=== PATIENT | male | born 1975 | race African-American/Black ===

== ENCOUNTER 2023-01-05 20:28 | Emergency (ER) | payer BC, OTHER ==
[2023-01-05 21:16] LABS: Absolute Lymphocytes (CBC) 4.2 K/uL (0.7-4.9); Hematocrit 40.6 % (39.6-49.0); Lymphocytes % 40.2 % (15.3-44.8); MCV 96.2 fL (80-100); MPV 9.5 fL (7.6-11.3); RBC Red Blood Cell Count 4.22 M/uL (4.33-5.43)
[2023-01-05] MEDS ORDERED: METOCLOPRAMIDE 10 MG/2mL INJ ONE (21:18)
[2023-01-05] MEDS ORDERED: DIAZEPAM 10 MG/2 ML INJ SYRINGE ONE (21:19)
[2023-01-05] MEDS ORDERED: NA CHLORIDE 0.9% 100 ML ONE (21:19)
[2023-01-05] MEDS ORDERED: DICYCLOMINE HCL 20 MG/2 ML AMP IM ONE (21:19)
[2023-01-05] MEDS ORDERED: NA CHLORIDE 0.9% 1,000 ML ONE (21:20)
[2023-01-05] MEDS ORDERED: GLUCAGON 1 MG/VIAL ONE (21:20)
[2023-01-05 21:30] LABS: Albumin 3.7 g/dL (3.4-5.0); Bilirubin Direct 0.2 mg/dL (0-0.2); Bilirubin Indirect, Calculated 0.5 mg/dL (0.2-0.8); Bilirubin Total 0.7 mg/dL (0.2-1.0); Potassium 3.5 mEq/L (3.5-5.1)
--- NOTE | 2023-01-05 22:45 | RAD REPORT ---
EXAM DESCRIPTION: CT - Thorax Wo Con CLINICAL HISTORY: Chest pain esophageal foreign body COMPARISON: CTANGIO CHEST FOR PE dated 02/02/2009 FINDINGS: The lungs are clear. No pleural thickening or pleural effusion. No pneumothorax. No axillary, mediastinal or hilar adenopathy. No radiopaque foreign body seen. No concerning bony finding. No gross upper abdominal finding. All CT scans are performed using dose optimization technique as appropriate and may include automated exposure control or mA/KV adjustment according to patient size. IMPRESSION: Negative study.
--- NOTE | 2023-01-05 23:16 | ER ---
Nurse's Notes [facility] Name: Franco Meenndez Age: 48 yrs Sex: Male : 1975 Arrival Date: 01/05/2023 Time: 20:28 Bed 5 Private MD: Diagnosis: Esophageal obstruction, esophageal food bolus impaction Presentation: 01/05 20:51 Chief complaint: Patient states: 'I ate a piece of meat earlier and it's stuck in my as6 throat. It's been there for hours". Coronavirus screen: At this time, the client does not indicate any symptoms associated with coronavirus-19. Ebola Screen: No symptoms or risks identified at this time. Initial Sepsis Screen: Does the patient meet any 2 criteria? No. Patient's initial sepsis screen is negative. Does the patient have a suspected source of infection? No. Patient's initial sepsis screen is negative. Risk Assessment: Do you want to hurt yourself or someone else? Patient reports no desire to harm self or others. Onset of symptoms was January 05, 2023. 20:51 Method Of Arrival: Ambulatory as6 20:51 Acuity: MAURICIO 3 as6 Historical: - Allergies: 20:54 No Known Allergies; as6 - PMHx: 20:54 Hypertensive disorder; as6 - PSHx: 20:54 Tonsillectomy; as6 - Immunization history:: Client reports receiving the 2nd dose of the Covid vaccine, pfizer. - Social history:: Smoking status: Patient reports the use of cigarette tobacco products, denies chronic smoking, but will smoke occasionally. - Family history:: not pertinent. Screenin:37 [facility] ED Fall Risk Assessment (Adult) History of falling in the last 3 months, kd3 including since admission No falls in past 3 months (0 pts) Confusion or Disorientation No (0 pts) Intoxicated or Sedated No (0 pts) Impaired Gait No (0 pts) Mobility Assist Device Used No (0 pt) Altered Elimination No (0 pt) Score/Fall Risk Level 0 - 2 = Low Risk Maintained a safe environment. Abuse screen: Denies threats or abuse. Denies injuries from another. Nutritional screening: No deficits noted. Tuberculosis screening: No symptoms or risk factors identified. Assessment: 21:36 General: Appears uncomfortable, Behavior is calm, cooperative. Pain: Complains of pain kd3 in neck. Neuro: Level of Consciousness is awake, alert, obeys commands, Oriented to person, place, time, situation. Cardiovascular: Patient's skin is warm and dry. Respiratory: Airway is patent Trachea midline Respiratory effort is even, unlabored, Respiratory pattern is regular, symmetrical. Vital Signs: 20:51 BP 166 / 110; Pulse 65; Resp 18 S; Temp 98.1(O); Pulse Ox 98% on R/A; Weight 108.86 kg as6 (R); Height 5 ft. 9 in. (R); Pain 0/10; 21:36 BP 155 / 91; Pulse 52; Resp 19; Pulse Ox 98% on R/A; kd3 22:40 BP 145 / 99; Pulse 52; Resp 15; Pulse Ox 100% on R/A; kd3 01/06 00:17 BP 136 / 100; Pulse 54; Resp 19; Pulse Ox 100% on R/A; kd3 01/05 20:51 Body Mass Index 35.44 (108.86 kg, 175.26 cm) as6 01/05 20:51 Pain Scale: Adult as6 ED Course: 01/05 20:31 Patient arrived in ED. ja2 20:40 Buddy Hernández PA is PHCP. cp 20:40 Austen Gutierrez MD is Attending Physician. cp 20:53 Austen Gutierrez MD is Attending Physician. sp4 20:54 Triage completed. as6 20:57 Arm band placed on. as6 21:06 Inserted saline lock: 20 gauge in right antecubital area, using aseptic technique. as6 Blood collected. 21:36 Roxy Hinton, RN is Primary Nurse. kd3 21:37 Patient has correct armband on for positive identification. kd3 22:31 CT Chest Wo Con In Process Unspecified. EDMS 23:07 Initiated transfer to [facility], spoke with Saurav. wm 01/06 00:18 Pt accepted for transfer by Dr. Larkin \\T\\ 0012 per Saurav Haq. wm Administered Medications: 01/05 21:24 Drug: metoCLOPramide IVP 10 mg Route: IVP; Site: right antecubital; kd3 01/06 00:18 Follow up: Response: No adverse reaction kd3 01/05 21:24 Drug: Glucagon IVP 1 mg Route: IVP; Site: right antecubital; kd3 01/06 00:18 Follow up: Response: No adverse reaction kd3 01/05 21:24 Drug: Dicyclomine IM 20 mg Route: IM; Site: left deltoid; kd3 01/06 00:17 Follow up: Response: No adverse reaction kd3 01/05 21:24 Drug: Diazepam IVP 5 mg Route: IVP; Site: right antecubital; kd3 01/06 00:17 Follow up: Response: No adverse reaction kd3 01/05 21:25 Drug: NS 0.9% IV 1000 ml Route: IV; Rate: 125 ml/hr; Site: right antecubital; kd3 01/06 00:52 Drug: Diazepam IVP 5 mg Route: IVP; Site: right antecubital; kd3 Medication: 01/05 21:37 VIS not applicable for this client. kd3 Outcome: 23:16 ER care complete, transfer ordered by spLiliam 01/06 01:32 Patient left the ED. sb4 Signatures: Dispatcher [employer] EDMS Buddy Hernández PA PA cp Marsh, Wendy wm Alexander, Jessica ja2 Slawson, Ashby, RN RN as6 Roxy Hinton RN RN kd3 Alison Zavaleta PA-C PA-C sb4 Austen Gutierrez MD MD sp4
--- NOTE | 2023-01-05 23:16 | EDPHYS ---
Physician Documentation [facility] Name: Franco Menendez Age: 48 yrs Sex: Male : 1975 Arrival Date: 01/05/2023 Time: 20:28 Bed 5 Private MD: ED Physician Austen Gutierrez HPI: 01/05 20:53 This 48 yrs old Black Male presents to ER via Unassigned with complaints of Foreign sp4 Body In Throat. 23:08 48-year-old male with a history of prior dysphagia and esophageal foreign body about 8 sp4 years ago, presents with acute dysphagia and sensation of food stuck in his esophagus starting at 2 PM today. Patient states he had a ox tail, that became lodged in his esophagus. Patient states that he is not able to tolerate p.o. water as it comes right back up. . Historical: - Allergies: 20:54 No Known Allergies; as6 - PMHx: 20:54 Hypertensive disorder; as6 - PSHx: 20:54 Tonsillectomy; as6 - Immunization history:: Client reports receiving the 2nd dose of the Covid vaccine, pfizer. - Social history:: Smoking status: Patient reports the use of cigarette tobacco products, denies chronic smoking, but will smoke occasionally. - Family history:: not pertinent. ROS: 23:08 Constitutional: Negative for fever, chills, and weight loss, Eyes: Negative for injury, sp4 pain, redness, and discharge, ENT: Negative for injury, pain, and discharge, positive for acute dysphagia Neck: Negative for injury, pain, and swelling, Cardiovascular: Negative for chest pain, palpitations, and edema, Respiratory: Negative for shortness of breath, cough, wheezing, and pleuritic chest pain, Abdomen/GI: Negative for abdominal pain, diarrhea, and constipation, positive for nausea, vomiting, acute dysphagia Back: Negative for injury and pain, : Negative for injury, bleeding, discharge, and swelling, MS/Extremity: Negative for injury and deformity, Skin: Negative for injury, rash, and discoloration, Neuro: Negative for headache, weakness, numbness, tingling, and seizure, Psych: Negative for depression, anxiety, Allergy/Immunology: Negative for hives, rash, and allergies Endocrine: Negative for neck swelling, polydipsia, polyuria, polyphagia, and weight changes Hematologic/Lymphatic: Negative for swollen nodes, abnormal bleeding, and unusual bruising Exam: 23:08 Constitutional: This is a well developed, well nourished patient who is awake, alert, sp4 and in no acute distress. Head/Face: Normocephalic, atraumatic. Eyes: Pupils equal round and reactive to light, extra-ocular motions intact. Lids and lashes normal. Conjunctiva and sclera are not injected. Cornea within normal limits. Periorbital areas with no swelling, redness, or edema. ENT: Nares patent. No nasal discharge, no septal abnormalities noted. Tympanic membranes are normal and external auditory canals are clear. Oropharynx with no redness, swelling, or masses, exudates, or evidence of obstruction, uvula midline. Mucous membranes moist. Neck: Trachea midline, no thyromegaly or masses palpated, and no cervical lymphadenopathy. Supple, full range of motion without nuchal rigidity, or vertebral point tenderness. Chest/axilla: Normal chest wall appearance and motion. Nontender with no deformity. No lesions are appreciated. Cardiovascular: Regular rate and rhythm with a normal S1 and S2. No gallops, murmurs, or rubs. Normal PMI, no JVD. No pulse deficits. Respiratory: Lungs have equal breath sounds bilaterally, clear to auscultation and percussion. No rales, rhonchi or wheezes noted. No increased work of breathing, no retractions or nasal flaring. Abdomen/GI: Soft, non-tender, with normal bowel sounds. No distension or tympany. No guarding or rebound. No evidence of tenderness throughout. Back: No spinal tenderness. No costovertebral tenderness. Male : Normal genitalia with no discharge or lesions. Skin: Warm, dry with normal turgor. Normal color with no rashes, no lesions, and no evidence of cellulitis. MS/ Extremity: Pulses equal, no cyanosis. Neurovascular intact. Full, normal range of motion. Neuro: Awake and alert, GCS 15, oriented to person, place, time, and situation. Cranial nerves II-XII grossly intact. Motor strength 5/5 in all extremities. Sensory grossly intact. Psych: Awake, alert, with orientation to person, place and time. Behavior, mood, and affect are within normal limits 23:08 ECG was reviewed by the Attending Physician. Sinus bradycardia at the rate of 58, no ST sp4 elevation or depression, otherwise normal EKG. EKG time 2130 Vital Signs: 20:51 BP 166 / 110; Pulse 65; Resp 18 S; Temp 98.1(O); Pulse Ox 98% on R/A; Weight 108.86 kg as6 (R); Height 5 ft. 9 in. (R); Pain 0/10; 21:36 BP 155 / 91; Pulse 52; Resp 19; Pulse Ox 98% on R/A; kd3 22:40 BP 145 / 99; Pulse 52; Resp 15; Pulse Ox 100% on R/A; kd3 01/06 00:17 BP 136 / 100; Pulse 54; Resp 19; Pulse Ox 100% on R/A; kd3 01/05 20:51 Body Mass Index 35.44 (108.86 kg, 175.26 cm) as6 01/05 20:51 Pain Scale: Adult as6 MDM: 01/05 20:59 Patient medically screened. sp4 23:14 Differential Diagnosis Esophageal food impaction, esophageal mass, esophageal ulcer, sp4 acute dysphagia. Data reviewed: vital signs, nurses notes, old medical records, lab test result(s), EKG, radiologic studies, CT scan. Consideration of Admission/Observation Patient was admitted/placed on observation. Escalation of care including admission/observation considered. Management of patient was discussed with the following: Side Show Entertainer: Gastroenterology. ED course: CT was discussed with the radiologist on-call radiologist reported distal esophageal foreign body measuring 13 mm consistent with foreign body possible food particle. ED course: Patient not able to tolerate any p.o. fluids. Medications have failed to dislodge the food bolus. Patient warrants GI evaluation and transfer. 01/06 00:13 ED course: Patient was accepted at [facility] by [facility] cena. sp4 We will transfer via EMS.. 00:28 ED course: ADDENDUM There is a 13 mm soft tissue structure in the sp4 esophagus inferiorly (image 43/69). This could be an ingested portion of food stuff or a polyp. If clinically indicated, endoscopy could be considered. . 01/05 20:57 Order name: Basic Metabolic Panel; Complete Time: 23:13 sp4 01/05 20:57 Order name: CBC with Diff; Complete Time: 23:13 sp4 01/05 20:57 Order name: LFT's; Complete Time: 23:13 sp4 01/05 20:57 Order name: PT-INR; Complete Time: 23:13 sp4 01/05 20:57 Order name: CT Chest Wo Con; Complete Time: 23:13 sp4 01/05 20:57 Order name: EKG; Complete Time: 20:58 sp4 01/05 20:57 Order name: Cardiac monitoring; Complete Time: 21:36 sp4 01/05 20:57 Order name: EKG - Nurse/Tech; Complete Time: 21:36 sp4 01/05 20:57 Order name: IV Saline Lock; Complete Time: 21:06 sp4 01/05 20:57 Order name: Labs collected and sent; Complete Time: 21:06 sp4 01/05 20:57 Order name: O2 Per Protocol; Complete Time: 21:36 sp4 01/05 20:57 Order name: O2 Sat Monitoring; Complete Time: 21:36 sp4 01/05 20:58 Order name: NPO; Complete Time: 21:25 sp4 EC/17 23:08 Rate is 58 beats/min. Rhythm is regular, Sinus bradycardia. QRS [employer] is Normal. RI sp4 interval is normal. QRS interval is normal. QT interval is normal. T waves are Normal. No ST changes noted. Clinical impression: No evidence of ischemia. Interpreted by me. Administered Medications: 21:24 Drug: metoCLOPramide IVP 10 mg Route: IVP; Site: right antecubital; 01/06 00:18 Follow up: Response: No adverse reaction 01/05 21:24 Drug: Glucagon IVP 1 mg Route: IVP; Site: right antecubital; 3 01/06 00:18 Follow up: Response: No adverse reaction 01/05 21:24 Drug: Dicyclomine IM 20 mg Route: IM; Site: left deltoid; 01/06 00:17 Follow up: Response: No adverse reaction 01/05 21:24 Drug: Diazepam IVP 5 mg Route: IVP; Site: right antecubital; 3 01/06 00:17 Follow up: Response: No adverse reaction 01/05 21:25 Drug: NS 0.9% IV 1000 ml Route: IV; Rate: 125 ml/hr; Site: right antecubital; kd3 01/06 00:52 Drug: Diazepam IVP 5 mg Route: IVP; Site: right antecubital; kd3 Disposition Summary: 01/05/23 23:16 Transfer Ordered Transfer Location: [facility] sp4 Reason: Higher level of care sp4 Condition: Stable sp4 Problem: new sp4 Symptoms: are unchanged sp4 Accepting Physician: [facility] Attending (01/06/23 01:32) sb4 Diagnosis - Esophageal obstruction, esophageal food bolus impaction sp4 Forms: - Medication Reconciliation Form sp4 - SBAR form sp4 Signatures: Dispatcher [employer] Jamir Hardwick RN RN as6 Roxy Hinton RN RN kd3 Alison Zavaleta, PARosendo PARosendo sb4 Austen Gutierrez MD MD sp4 Corrections: (The following items were deleted from the chart) 01:32 01/05 23:16 [facility] Attending sp4 sb4
[2023-01-06] MEDS ORDERED: DIAZEPAM 10 MG/2 ML INJ SYRINGE ONE (00:58)
[2023-01-06 01:38] VITALS: TEMP 98.1
[2023-01-06 01:40] VITALS: O2SAT 100
[2023-01-06 01:41] VITALS: BP 136/100
--- NOTE | 2023-01-07 17:53 | EKG ---
Test Date: 2023-01-05 Test Time: 21:30:04 Construction Assistant: VALENTE MEASUREMENT RESULTS: Intervals: Rate: 58 IA: 172 QRSD: 96 QT: 430 QTc: 422 [place]: P: 48 IA: 172 QRS: 59 T: 30 INTERPRETIVE STATEMENTS: Sinus bradycardia Otherwise normal ECG Compared to ECG 02/02/2009 12:22:21 Sinus rhythm no longer present Sinus arrhythmia no longer present Electronically Signed On 01-07-23 17:50:02 CDT by Samir Gomez
== END 2023-01-06 01:32 | disposition short-term general hospital (02) ==
LOC: ER 20:28
DX: K22.2 Esophageal obstruction (principal); T18.128A Food in esophagus causing other injury, initial encounter; F17.210 Nicotine dependence, cigarettes, uncomplicated
CPT/HCPCS: 93005; 85025; 80048; 36415; 85610; 80076; 71250; 96375; 96372; 96374; 99284; J1610; J2765; J0500; J3360 ×2; J7030

== ENCOUNTER 2024-05-25 02:24 | Emergency (ER) | payer BC, OTHER ==
[2024-05-25 03:09] LABS: Absolute Basophils 0.1 K/uL (0-0.5); Absolute Eosinophils 0.4 K/uL (0-0.5); Absolute Lymphocytes (CBC) 3.1 K/uL (0.7-4.9); Absolute Monocytes 0.6 K/uL (0.1-1.3); Absolute Neutrophil 6.9 K/uL (1.8-8.0); Basophils % 0.5 % (0-1.3); Eosinophils % 3.2 % (0-4.4); Hematocrit 37.4 % (39.6-49.0); Lymphocytes % 27.7 % (15.3-44.8); MCHC 34.7 g/dL (32.0-36.0); MCV 95.1 fL (80-100); MPV 9.3 fL (7.6-11.3); Monocytes % 5.8 % (3.3-12.3); Neutrophils % 62.8 % (41.7-73.7); Platelets 169 thou/uL (152-406); RBC Red Blood Cell Count 3.94 M/uL (4.33-5.43); Red Cell Distribution Width 14.3 % (12.1-15.2)
[2024-05-25 03:11] LABS: Specific Gravity > 1.030 (1.005-1.030); Sqamous Epithelial <5 /HPF (None Seen); Urine Bacteria None Seen /HPF (<20); Urine Bilirubin NEGATIVE (Negative); Urine Blood 1+ (Negative); Urine Clarity Clear (Clear); Urine Color Yellow (Yellow); Urine Culture Reflex Order NOT NEEDED; Urine Glucose NEGATIVE (Negative); Urine Ketones NEGATIVE (Negative); Urine Microscopic Reflex YN ORDER UMIC; Urine Mucus Slight /HPF (None Seen); Urine Nitrite NEGATIVE (Negative); Urine Protein TRACE (Negative); Urine RBC <5 /HPF (None Seen); Urine Urobilinogen Normal (Normal); Urine WBC <5 /HPF (<5); Urine pH 5.5 (5.0-7.0)
[2024-05-25] MEDS ORDERED: KETOROLAC 30 MG/ML INJ ONE (03:14)
[2024-05-25] MEDS ORDERED: FAMOTIDINE 20 MG/2 ML VIAL IV ONE (03:16)
[2024-05-25] MEDS ORDERED: ONDANSETRON 4 MG/2 ML VIAL ONE (03:16)
[2024-05-25] MEDS ORDERED: NA CHLORIDE 0.9% 1,000 ML ONE (03:16)
[2024-05-25 03:26] LABS: Albumin 3.6 g/dL (3.4-5.0); Albumin/Globulin Ratio 1.1 (1.1-1.8); Anion Gap 8.3 mEq/L (5.0-15.0); Bilirubin Total 1.7 mg/dL (0.2-1.0); Globulin 3.4 g/dL (2.3-3.5); Potassium 3.3 mEq/L (3.5-5.1)
[2024-05-25] MEDS ORDERED: DICYCLOMINE HCL 10 MG CAP ONE (04:39)
[2024-05-25] MEDS ORDERED: TRAMADOL HCL 50 MG TAB ONE ×2 (04:39→04:42)
--- NOTE | 2024-05-25 04:53 | RAD REPORT ---
EXAM: CT Abdomen and Pelvis With Intravenous Contrast CLINICAL HISTORY: The patient is 49 years old and is Male; ABD PAIN TECHNIQUE: Axial computed tomography images of the abdomen and pelvis with intravenous contrast. Sagittal and coronal reformatted images were created and reviewed. This CT exam was performed using one or more of the following dose reduction techniques: automated exposure control, adjustmen t of the mA and/or kV according to patient size, and/or use of iterative reconstruction technique. COMPARISON: No relevant prior studies available. FINDINGS: Lung bases: Unremarkable. No mass. No consolidation. ABDOMEN: Liver: Unremarkable. No mass. Gallbladder and bile ducts: Unremarkable. No calcified stones. No ductal dilation. Pancreas: Unremarkable. No mass. No ductal dilation. Spleen: Unremarkable. No splenomegaly. Adrenals: Unremarkable. No mass. Kidneys and ureters: 7 cm simple cyst in the right kidney. 1 cm simple cyst in the left kidney. N o follow-up imaging is recommended. No hydronephrosis. Stomach and bowel: Unremarkable. No obstruction. No mucosal thickening. PELVIS: Appendix: The appendix is normal. Bladder: Diffuse bladder wall thickening. Reproductive: Unremarkable as visualized. ABDOMEN and PELVIS: Intraperitoneal space: Unremarkable. No free air. No significant fluid collection. Bones/joints: No acute fracture. No dislocation. Soft tissues: Unremarkable. Vasculature: Unremarkable. No abdominal aortic aneurysm. Lymph nodes: Unremarkable. No enlarged lymph nodes. IMPRESSION: Diffuse bladder wall thickening. Correlate with any concern for cystitis, chronic bladder outlet obstruction, or other infiltrative process. Electronically signed by: Babak Martinez MD 05/25/2024 04:26 AM [facility] 8 Due to temporary technical issues with the [employer] [facility] reporting system, reports are being kenyetta d by the in-house radiologist without review as a courtesy to ensure prompt reporting the interpreting radiologist is fully responsible for the content of the report. Transcribed Date/Time: 05/25/2024 4:53 AM
--- NOTE | 2024-05-25 05:52 | ER ---
Nurse's Notes [facility] Name: Franco Menendez Age: 49 yrs Sex: Male : 1975 Arrival Date: 05/25/2024 Time: 02:24 Bed 6 Private MD: Diagnosis: Rectal Pain, Anal Fissure, Rectal Bleeding Presentation: 05/25 02:47 Chief complaint: Patient states: c/o constipation, diarrhea, bright red in the stool, al5 and lower abdominal/suprapubic pain since yesterday. denies n/v or any uti symptoms. Coronavirus screen: At this time, the client does not indicate any symptoms associated with coronavirus-19. Ebola Screen: No symptoms or risks identified at this time. Initial Sepsis Screen: Does the patient meet any 2 criteria? No. Patient's initial sepsis screen is negative. Does the patient have a suspected source of infection? No. Patient's initial sepsis screen is negative. Risk Assessment: Do you want to hurt yourself or someone else? Patient reports no desire to harm self or others. Onset of symptoms was May 24, 2024. 02:47 Method Of Arrival: Ambulatory al5 02:47 Acuity: MAURICIO 3 al5 Triage Assessment: 02:50 General: Appears in no apparent distress. Behavior is calm, cooperative. Pain: al5 Complains of pain in suprapubic area, right lower quadrant and left lower quadrant Pain currently is 8 out of 10 on a pain scale. EENT: No signs and/or symptoms were reported regarding the EENT system. Neuro: Level of Consciousness is awake, alert, obeys commands, Oriented to person, place, time, situation. Cardiovascular: Capillary refill < 3 seconds Patient's skin is warm and dry. Respiratory: Airway is patent Respiratory effort is even, unlabored, Respiratory pattern is regular, symmetrical. GI: Abdomen is round non-distended, Reports lower abdominal pain, constipation, diarrhea, bloody stool. : No signs and/or symptoms were reported regarding the genitourinary system. Derm: Skin is intact, Skin is pink, warm \T\ dry. normal. Musculoskeletal: No signs and/or symptoms reported regarding the musculoskeletal system. Historical: - Allergies: 02:49 No Known Allergies; al5 - PMHx: 02:49 Hypertensive disorder; al5 - PSHx: 02:49 Tonsillectomy; al5 - Immunization history:: Adult Immunizations up to date. - Infectious Disease History:: Denies. - Social history:: Smoking status: Patient denies any tobacco usage or history of. - Family history:: not pertinent. Screenin:52 [facility] ED Fall Risk Assessment (Adult) History of falling in the last 3 months, al5 including since admission No falls in past 3 months (0 pts) Confusion or Disorientation No (0 pts) Intoxicated or Sedated No (0 pts) Impaired Gait No (0 pts) Mobility Assist Device Used No (0 pt) Altered Elimination No (0 pt) Score/Fall Risk Level 0 - 2 = Low Risk Oriented to surroundings, Maintained a safe environment, Hourly rounding (assess needs \T\ fall precautionary measures) done. Abuse screen: Denies threats or abuse. Denies injuries from another. Nutritional screening: No deficits noted. Tuberculosis screening: No symptoms or risk factors identified. Assessment: 02:52 Reassessment: see triage assessment. al5 02:53 GI: Abd is soft X 4 quads Abdomen is tender to palpation in suprapubic area, right al5 lower quadrant and left lower quadrant. 03:47 Reassessment: Patient appears in no apparent distress at this time. No changes from al5 previously documented assessment. Patient and/or family updated on plan of care and expected duration. Pain level reassessed. Patient is alert, oriented x 3, equal unlabored respirations, skin warm/dry/pink. 06:15 GI: Bowel sounds present X 4 quads. mt4 Vital Signs: 02:45 BP 153 / 98; Pulse 62; Resp 16; Pulse Ox 99% ; al5 02:47 BP 152 / 100; Pulse 72; Resp 17; Temp 98.9; Pulse Ox 96% on R/A; Weight 94.35 kg; al5 Height 5 ft. 9 in. ; Pain 8/10; 03:00 BP 146 / 92; Pulse 60; Resp 17; Pulse Ox 100% on R/A; al5 03:31 BP 133 / 91; Pulse 60; Resp 20; Temp 98.5; Pulse Ox 99% on R/A; Pain 8/10; mt4 04:00 BP 137 / 91; Pulse 59; Resp 15; Pulse Ox 98% on R/A; al5 04:30 BP 148 / 95; Pulse 64; Resp 16; Pulse Ox 98% on R/A; al5 04:52 BP 148 / 95; Pulse 64; Resp 15; Pulse Ox 98% on R/A; mt4 06:03 BP 139 / 96; Pulse 56; Resp 18; Pulse Ox 96% on R/A; Pain 0/10; mt4 02:47 Body Mass Index 30.72 (94.35 kg, 175.26 cm) al5 02:47 Pain Scale: Adult al5 03:31 Pain Scale: Adult mt4 06:03 Pain Scale: Adult mt4 [place] Coma Score: 06:14 Eye Response: spontaneous(4). Motor Response: obeys commands(6). Verbal Response: mt4 oriented(5). Total: 15. 05/26 02:01 Eye Response: spontaneous(4). Motor Response: obeys commands(6). Verbal Response: sp4 oriented(5). Total: 15. ED Course: 05/25 02:26 Patient arrived in ED. jj6 02:41 Austen Gutierrez MD is Attending Physician. sp4 02:49 Triage completed. al5 02:52 Arm band placed on right wrist. Patient placed in the treatment room, on a stretcher. al5 02:52 Patient has correct armband on for positive identification. Bed in low position. Call al5 light in reach. Side rails up X2. Provided Education on: plan of care. 02:53 No provider procedures requiring assistance completed. al5 02:58 CBC with Diff Sent. ha1 02:58 CMP Sent. ha1 02:58 Lipase Sent. ha1 02:58 Urinalysis w/ reflexes Sent. ha1 03:55 Aileen Lee, RJ is Primary Nurse. al5 04:08 CT Abd/Pelvis - IV Contrast Only In Process Unspecified. EDMS 05:51 Franco Moreno MD is Referral Physician. sp4 06:14 IV discontinued, intact, bleeding controlled, No redness/swelling at site. Pressure mt4 dressing applied. Patient maintains SpO2 saturation greater than 95% on room air. Administered Medications: 03:30 Drug: Famotidine IVP 20 mg IVP once; dilute with 10 mL 0.9% NaCl; give over 2 minutes mt4 Route: IVP; Site: left antecubital; 05:02 Follow up: Response: No adverse reaction mt4 03:30 Drug: Ondansetron IVP 4 mg IVP once; over 2 minutes Route: IVP; Site: left antecubital; mt4 06:40 Follow up: Response: No adverse reaction; Nausea is decreased al5 03:30 Drug: NS 0.9% IV 1000 ml IV at 1 bolus Per protocol; to be given as a bolus over 60 mt4 minutes Route: IV; Rate: 1 bolus; Site: left antecubital; 05:01 Follow up: Response: No adverse reaction; IV Status: Completed infusion; IV Intake: mt4 1000ml 03:31 Drug: TORadol - Ketorolac IVP 15 mg IVP once Route: IVP; Site: left antecubital; mt4 05:01 Follow up: Response: No adverse reaction mt4 04:46 Drug: Dicyclomine PO 20 mg PO once Route: PO; mt4 06:04 Follow up: Response: No adverse reaction mt4 04:46 Drug: traMADol PO 100 mg PO once Route: PO; mt4 06:03 Follow up: Response: No adverse reaction mt4 Medication: 02:52 VIS not applicable for this client. al5 Intake: 05:01 IV: 1000ml; Total: 1000ml. mt4 Outcome: 05:52 Discharge ordered by . sp4 06:14 Discharged to home ambulatory, mt4 06:14 Condition: stable 06:14 Discharge instructions given to patient, family, Instructed on discharge instructions, follow up and referral plans. medication usage, Demonstrated understanding of instructions, follow-up care, medications, Prescriptions given X 3, 06:15 Patient left the ED. mt4 Signatures: Dispatcher [employer] EDMS Court Zhong [email or web address] Valeria Mcmahon RN RN [email or web address] Austen Gutierrez MD MD sp4 Mirza Grey RN RN mt4 Aileen Lee RN RN al5
--- NOTE | 2024-05-25 05:52 | EDPHYS ---
Physician Documentation [facility] Name: Franco Menendez Age: 49 yrs Sex: Male : 1975 Arrival Date: 05/25/2024 Time: 02:24 Bed 6 Private MD: ED Physician Austen Gutierrez HPI: 05/25 02:41 This 49 yrs old Black Male presents to ER via Unassigned with complaints of Abdominal sp4 Pain, Diarrhea, Constipation. 05/26 02:01 Patient presents with rectal discomfort associated with complaint of some constipation sp4 and bleeding from rectum . Historical: - Allergies: 05/25 02:49 No Known Allergies; al5 - PMHx: 02:49 Hypertensive disorder; al5 - PSHx: 02:49 Tonsillectomy; al5 - Immunization history:: Adult Immunizations up to date. - Infectious Disease History:: Denies. - Social history:: Smoking status: Patient denies any tobacco usage or history of. - Family history:: not pertinent. ROS: 05/26 02:01 Constitutional: Negative for fever, chills, and weight loss, Positive for abdominal sp4 pain , rectal pain, constipation, rectal bleeding All other systems are negative, Exam: 02:01 Constitutional: This is a well developed, well nourished patient who is awake, alert, sp4 and in no acute distress. Head/Face: Normocephalic, atraumatic. Eyes: Pupils equal round and reactive to light, extra-ocular motions intact. Lids and lashes normal. Conjunctiva and sclera are not injected. Cornea within normal limits. Periorbital areas with no swelling, redness, or edema. ENT: Nares patent. No nasal discharge, no septal abnormalities noted. Tympanic membranes are normal and external auditory canals are clear. Oropharynx with no redness, swelling, or masses, exudates, or evidence of obstruction, uvula midline. Mucous membranes moist. Neck: Trachea midline, no thyromegaly or masses palpated, and no cervical lymphadenopathy. Supple, full range of motion without nuchal rigidity, or vertebral point tenderness. Chest/axilla: Normal chest wall appearance and motion. Nontender with no deformity. No lesions are appreciated. Cardiovascular: Regular rate and rhythm with a normal S1 and S2. No gallops, murmurs, or rubs. Normal PMI, no JVD. No pulse deficits. Respiratory: Lungs have equal breath sounds bilaterally, clear to auscultation and percussion. No rales, rhonchi or wheezes noted. No increased work of breathing, no retractions or nasal flaring. Abdomen/GI: Soft, with normal bowel sounds. No distension or tympany. No guarding or rebound. No evidence of tenderness throughout. Back: No spinal tenderness. No costovertebral tenderness. Male : Normal genitalia with no discharge or lesions. Rectal exam - no blood, no melena Skin: Warm, dry with normal turgor. Normal color with no rashes, no lesions, and no evidence of cellulitis. MS/ Extremity: Pulses equal, no cyanosis. Neurovascular intact. Full, normal range of motion. Neuro: Awake and alert, GCS 15, oriented to person, place, time, and situation. Cranial nerves II-XII grossly intact. Motor strength 5/5 in all extremities. Sensory grossly intact. Psych: Awake, alert, with orientation to person, place and time. Behavior, mood, and affect are within normal limits 02:01 Abdomen/GI: Rectal exam: is unremarkable, Vital Signs: 05/25 02:45 BP 153 / 98; Pulse 62; Resp 16; Pulse Ox 99% ; al5 02:47 BP 152 / 100; Pulse 72; Resp 17; Temp 98.9; Pulse Ox 96% on R/A; Weight 94.35 kg; al5 Height 5 ft. 9 in. ; Pain 8/10; 03:00 BP 146 / 92; Pulse 60; Resp 17; Pulse Ox 100% on R/A; al5 03:31 BP 133 / 91; Pulse 60; Resp 20; Temp 98.5; Pulse Ox 99% on R/A; Pain 8/10; mt4 04:00 BP 137 / 91; Pulse 59; Resp 15; Pulse Ox 98% on R/A; al5 04:30 BP 148 / 95; Pulse 64; Resp 16; Pulse Ox 98% on R/A; al5 04:52 BP 148 / 95; Pulse 64; Resp 15; Pulse Ox 98% on R/A; mt4 06:03 BP 139 / 96; Pulse 56; Resp 18; Pulse Ox 96% on R/A; Pain 0/10; mt4 02:47 Body Mass Index 30.72 (94.35 kg, 175.26 cm) al5 02:47 Pain Scale: Adult al5 03:31 Pain Scale: Adult mt4 06:03 Pain Scale: Adult mt4 Dennys Coma Score: 06:14 Eye Response: spontaneous(4). Motor Response: obeys commands(6). Verbal Response: mt4 oriented(5). Total: 15. 05/26 02:01 Eye Response: spontaneous(4). Motor Response: obeys commands(6). Verbal Response: sp4 oriented(5). Total: 15. MDM: 05/25 02:45 Medical Screening Exam initiated sp4 05:42 ED course: EXAM: CTAbdomen and Pelvis With Intravenous Contrast CLINICAL HISTORY: The sp4 patient is 49 years old and is Male; ABD PAIN TECHNIQUE: Axial computed tomography images of the abdomen and pelvis with intravenous contrast. Sagittal and coronal reformatted images were created and reviewed. This CT exam was performed using one or more of the following dose reduction techniques: automated exposure control, adjustment of the mA and/or kV according to patient size, and/or use of iterative reconstruction technique. COMPARISON: No relevant prior studies available. FINDINGS: Lung bases: Unremarkable. No mass. No consolidation. ABDOMEN: Liver: Unremarkable. No mass. Gallbladder and bile ducts: Unremarkable. No calcified stones. No ductal dilation. Pancreas: Unremarkable. No mass. No ductal dilation. Spleen: Unremarkable. No splenomegaly. Adrenals: Unremarkable. No mass. Kidneys and ureters: 7 cm simple cyst in the right kidney. 1 cm simple cyst in the left kidney. No follow-up imaging is recommended. No hydronephrosis. Stomach and bowel: Unremarkable. No obstruction. No mucosal thickening. PELVIS: Appendix: The appendix is normal. Bladder: Diffuse bladder wall thickening. Reproductive: Unremarkable as visualized. ABDOMEN and PELVIS: Intraperitoneal space: Unremarkable. No free air. No significant fluid collection. Bones/joints: No acute fracture. No dislocation. Soft tissues: Unremarkable. Vasculature: Unremarkable. No abdominal aortic aneurysm. Lymph nodes: Unremarkable. No enlarged lymph nodes. IMPRESSION: Diffuse bladder wall thickening. Correlate with any concern for cystitis, chronic bladder outlet obstruction, or other infiltrative process.. 05/26 02:03 Differential diagnosis: Nonspecific abd pain, gastritis, cholecystitis, pancreatitis, sp4 appendicitis, diverticulitis, viral gastroenteritis, gastroenteritis. Data reviewed: vital signs, nurses notes, lab test result(s), radiologic studies, CT scan. Consideration of Admission/Observation Escalation of care including admission/observation considered. ED course: Stable for discharge home . 05/25 02:46 Order name: CBC with Diff; Complete Time: 04:14 sp4 05/25 02:46 Order name: CMP; Complete Time: 04:14 sp4 05/25 02:46 Order name: Lipase; Complete Time: 04:14 sp4 05/25 02:46 Order name: Urinalysis w/ reflexes; Complete Time: 04:14 sp4 05/25 02:46 Order name: CT Abd/Pelvis - IV Contrast Only sp4 05/25 02:46 Order name: IV Saline Lock; Complete Time: 02:57 sp4 05/25 02:46 Order name: Labs collected and sent; Complete Time: 02:57 sp4 Administered Medications: 05/25 03:30 Drug: Famotidine IVP 20 mg IVP once; dilute with 10 mL 0.9% NaCl; give over 2 minutes mt4 Route: IVP; Site: left antecubital; 05:02 Follow up: Response: No adverse reaction mt4 03:30 Drug: Ondansetron IVP 4 mg IVP once; over 2 minutes Route: IVP; Site: left antecubital; mt4 06:40 Follow up: Response: No adverse reaction; Nausea is decreased al5 03:30 Drug: NS 0.9% IV 1000 ml IV at 1 bolus Per protocol; to be given as a bolus over 60 mt4 minutes Route: IV; Rate: 1 bolus; Site: left antecubital; 05:01 Follow up: Response: No adverse reaction; IV Status: Completed infusion; IV Intake: mt4 1000ml 03:31 Drug: TORadol - Ketorolac IVP 15 mg IVP once Route: IVP; Site: left antecubital; mt4 05:01 Follow up: Response: No adverse reaction mt4 04:46 Drug: Dicyclomine PO 20 mg PO once Route: PO; mt4 06:04 Follow up: Response: No adverse reaction mt4 04:46 Drug: traMADol PO 100 mg PO once Route: PO; mt4 06:03 Follow up: Response: No adverse reaction mt4 Disposition Summary: 05/25/24 05:52 Discharge Ordered Notes: Location: Home sp4 Problem: new sp4 Symptoms: have improved sp4 Condition: Stable sp4 Diagnosis - Rectal Pain, Anal Fissure, Rectal Bleeding sp4 Followup: sp4 - With: Franco Moreno MD - When: 7 - 10 days - Reason: Recheck today's complaints Discharge Instructions: - Discharge Summary Sheet sp4 - Anal Fissure, Adult, [id number] sp4 Forms: - Patient Portal Instructions sp4 Prescriptions: - sennosides-docusate sodium 8.6-50 mg Oral capsule - take 2 capsule ORAL route every morning PRN constipation; 60 capsule; Refills: sp4 0, Product Selection Permitted - Ibuprofen 800 mg Oral Tablet - take 1 tablet ORAL route every 8 hours As needed take with food; 30 tablet; sp4 Refills: 0, Product Selection Permitted - Tramadol 50 mg Oral Tablet - take 1 tablet ORAL route every 8 hours as needed; 12 tablet; Refills: 0, sp4 Product Selection Permitted Signatures: Dispatcher [employer] Austen Lyles MD MD sp4 Mirza Grey RN RN mt4 Aileen Lee RN RN al5 Corrections: (The following items were deleted from the chart) 02:46 02:46 Abdomen Pelvis W [id number] ordered. EDMS EDMS
[2024-05-25 06:24] VITALS: TEMP 98.5
[2024-05-25 06:28] VITALS: BP 139/96; O2SAT 96
== END 2024-05-25 06:15 | disposition home or self-care (01) ==
LOC: ER 02:24
DX: K60.2 Anal fissure, unspecified (principal); K62.89 Other specified diseases of anus and rectum; I10 Essential (primary) hypertension
CPT/HCPCS: 85025; 81001; 36415; 83690; 80053; 74177; Q9967; J2405; J7030; 96361; 96374; 96375; 99284